=== PATIENT | female | born 1990 | race Caucasian/White ===

== ENCOUNTER 2019-04-06 16:08 | Inpatient (IN) ==
[2019-04-06] MEDS ORDERED: ONDANSETRON 4 MG TAB.RAPDIS PO PRN (16:13)
[2019-04-06] MEDS ORDERED: RINGER'S SOLUTION,LACTATED 1,000 ML IV ONE (16:13)
[2019-04-06] MEDS ORDERED: BUTORPHANOL TARTRATE 2 MG/ML VIAL IV PRN (16:13)
[2019-04-06] MEDS ORDERED: OXYTOCIN/DEXTROSE 5%-WATER 30 UNITS/500 ML BAG IV ONE (16:13)
[2019-04-06 16:48] LABS: Hematocrit 35.4 % (37.0-47.0); Hemoglobin 11.9 gm/dL (12.5-16.0); Mean Cell Volume 94.1 fl (78-100); Mean Corpuscular Hemoglobin 31.6 pg (27-31); Mean Corpuscular Hgb Conc 33.6 g/dl (32-36); Mean Platelet Volume 11.3 fl (8-12.5); Neutrophil # 14.9 K/mm3 (1.3-6.0); Neutrophil % 82.2 % (42-75.0); Platelet Count 251 K/mm3 (150-450); Red Blood Count 3.76 M/mm3 (4.2-5.4); Red Cell Distribution Width 13.1 % (11.5-14.0); White Blood Count 18.1 K/mm3 (4.0-10.5)
[2019-04-06 17:01] LABS: Anion Gap 14.7 mmol/L (6.8-13.8); BUN/Creatinine Ratio 21.4 (9.0-21.6); Bilirubin, Total 0.4 mg/dL (0.0-1.1); Ca. Corrected For Albumin 10.3 mg/dL (8.4-10.2); Calcium * 9.8 mg/dL (7.9-10.9); Carbon Dioxide 23.8 mmol/L (24-32.6); Potassium 4.5 mmol/L (3.4-4.6); Total Protein 7.4 gm/dL (6.2-8.2)
[2019-04-06 17:07] LABS: Cocaine Ur Negative (NEGATIVE); Urine Barbiturate Negative (NEGATIVE); Urine Benzodiazepines Negative (NEGATIVE); Urine Opiates Negative (NEGATIVE); Urine PCP Negative (NEGATIVE); Urine THC Negative (NEGATIVE)
[2019-04-06] MEDS: MISOPROSTOL 100 MCG TABLET VG PRN ×2 (17:10→21:23)
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
[2019-04-07] MEDS ORDERED: BUPIVACAINE HCL/0.9 % NACL/PF 250 ML EP PRN (01:32)
[2019-04-07] MEDS ORDERED: ONDANSETRON HCL/PF 2 MG/ML VIAL IV PRN (01:32)
[2019-04-07] MEDS ORDERED: NALOXONE HCL 1 MG/1 ML SYRG IV PRN (01:32)
[2019-04-07] MEDS ORDERED: fentaNYL CITRATE/PF 50 MCG/ML AMPUL IT SCH (01:45)
[2019-04-07] MEDS ORDERED: LIDOCAINE HCL/EPINEPHRINE 20 ML VIAL IJ ONE (01:50)
--- NOTE | 2019-04-07 02:33 | ANES ---
Anesthesia Pre Procedure Eval Vitals/Labs: Last Vital Signs Temp 36.8 C 04/07/19 01:33 Pulse 97 04/07/19 01:33 Resp 20 04/07/19 01:33 BP 121/72 04/07/19 01:33 Pulse Ox 98 04/07/19 01:33 HOME MEDICATIONS docosahexanoic acid 200 mg capsule mg PO cap 02/16/19 [Last Taken Unknown] ferrous sulfate 325 mg (65 mg iron) tablet 325 mg PO DAILY #30 tab 02/17/19 [Last Taken 04/06/19 05:30] Acetaminophen [Tylenol] PO PRN 04/06/19 [Last Taken 04/06/19 10:30] Vits96/Iron Fum/Folic [ S] 1 tab PO DAILY 04/06/19 [Last Taken 04/06/19 05:30] Allergies/Adverse Reactions: Allergies Allergy/AdvReac Type Severity Reaction Status Date / Time No Known Allergies Allergy Verified 04/06/19 16:35 - Planned Procedure Planned Procedure: INDUCTION OF LABOR Medication List Reviewed:: Yes Allergies Verified: Yes Medical History (Updated 04/06/19 @ 17:24 by Jung Castellanos DO) Alcohol abuse complicating in first trimester (Inactive) may have been up to late 2nd trimester since patient unsure of LMP. Tobacco abuse (Chronic) Abnormal Pap smear of cervix Onset Date: ~2009 stated "They scraped my cervix" Chlamydial infection Onset Date: Unknown Tx'd Surgical History (Updated 04/06/19 @ 17:24 by Jung Castellanos DO) No pertinent past surgical history Family History (Updated 02/16/19 @ 13:22 by Cassandra Burrows RN) Mother Breast cancer, Onset Age: 50 Father Pneumonia, Onset Age: 47 Brother Heart aneurysm - Family Anesthesia History Family History:: no untoward family reactions to anesthesia - Airway/Neck/Teeth Within Normal Limits:: Yes Teeth Condition: intact Mallampatti Score: 2 Thyromental (T-M) distance: > 6 cm Mandibulo Hyoid distance: > 3 cm - Respiratory Smoking Status: Current every day smoker - Cardiovascular Tolerate Activity: Good - Anesthesia Assessment and Plan ASA Class: PS, II, E Anesthesia Type Plan: Epidural Planned difficult intubation/equipment available: No
--- NOTE | 2019-04-07 02:34 | ANES ---
Post Anesthesia Discharge - Transfer of Care Transfer of Care handoff given to nurse: Yes - Anesthesia Post Op Note Anesthesia Post Op Note: Care transferred to OB RN
--- NOTE | 2019-04-07 02:34 | ANES ---
Post Anesthesia Assessment - Vital Signs Vitals: Last Vital Signs Temp 36.8 C 04/07/19 01:33 Pulse 97 04/07/19 01:33 Resp 20 04/07/19 01:33 BP 121/72 04/07/19 01:33 Pulse Ox 98 04/07/19 01:33 Airway Patency: Normal - Mental Status Level Of Consciousness: Awake - Pain Level Pain Score: 2 - N/V Assessment Nausea/Vomiting Presence: None Dehydration:: No
--- NOTE | 2019-04-07 02:37 | ANES ---
Anesthesia Procedure Note Procedure Note: ANESTHESIA PROCEDURE NOTE Date of Procedure: 04/07/2019 Time of procedure: 12 14. Performed by: Krishna Garibay CRNA Junior Art Director: None. Preprocedure diagnosis: Active labor. Post procedure diagnosis: Same. Procedure: Insertion of labor epidural. Indications: The patient is a 29-year-old prima para female in active labor requesting labor epidural for pain management. Findings: See below. Details of the procedure: The patient was placed in a sitting position. Back was prepped with DuraPrep. Patient was then draped in a sterile fashion. Lidocaine 1% was infiltrated to the skin and subcutaneous tissues at the level of the L3 4 interspace. The epidural space was identified using a 18-gauge Tuohy needle with [id number] technique. 20 mcg fentanyl was given intrathecally using a 27 ga. spinal needle. Epidural catheter was inserted without difficulty. Negative test dose was elicited using 3 mL of 2% preservative-free lidocaine plus epinephrine 1 200,000. The epidural catheter was then taped and secured in place. EBL: Minimal. Fluids: N/A. Specimen: N/A. Post procedure condition: The patient tolerated the procedure well. No complications were noted. Thank you for this consultation. Jaquez CRNA
[2019-04-07] MEDS: RINGER'S SOLUTION,LACTATED 1,000 ML IV PRN ×2 (02:42→10:06)
[2019-04-07] MEDS ORDERED: ALPRAZolam 1 MG TABLET PO ONE (08:51)
--- NOTE | 2019-04-07 13:07 | PN ---
Progess Note - Interim Date: 04/07/19 Time: 13:03 Narrative: 04/07/19 13:03 Patient comfortable with epidural Vital signs stable. Pitocin was at 3 mu/min, but stopped due to tachsystole. Contractions q 2-3 min Cervix: 4/70/-2 Impression: Intrauterine at 39 weeks. Induction of labor for demise Plan: Baseline stillbirth labs obtained. Continue induction of labor.
[2019-04-07] MEDS ORDERED: GLYCERIN/WITCH HAZEL LEAF 40 APPL BOX TP PRN (19:05)
[2019-04-07] MEDS ORDERED: ACETAMINOPHEN 325 MG TABLET PO PRN (19:05)
[2019-04-07] MEDS ORDERED: BENZOCAINE/MENTHOL 81 SPRAY CAN TP PRN (19:05)
[2019-04-07] MEDS ORDERED: OXYTOCIN/DEXTROSE 5%-WATER 30 UNITS/500 ML BAG IV ONE (19:05)
[2019-04-07] MEDS ORDERED: BISACODYL 10 MG SUPP.RECT RC PRN (19:05)
[2019-04-07] MEDS ORDERED: SENNOSIDES 8.6 MG TABLET PO PRN (19:05)
[2019-04-07] MEDS ORDERED: RHO(D) IMMUNE GLOBULIN 1,500 UNIT SYRINGE IM ONE ×2 (19:05→20:41)
[2019-04-07] MEDS ORDERED: IBUPROFEN 800 MG TABLET PO PRN (19:05)
[2019-04-07] MEDS ORDERED: HYDROCORTISONE 30 APPL TUBE TP PRN (19:05)
--- NOTE | 2019-04-07 19:50 | OR ---
Operative Report - Dictated Report Narrative: Spontaneous vaginal delivery of nonviable male at 1827 on 04[birth year]1997 weighing 2646 g in JESUS position with compound right arm presentation. head and face had extensive bruising. The skin of the entire body was macerated. The scrotum was swollen and ecchymotic. There was no gross morphological abnormalities of face limbs or digits. Placenta delivered complete, intact, with three vessel cord. About one third of the placenta had clot attached to the maternal side. Thick formed meconium was noted upon delivery of the . No amniotic fluid was noted at attempted ruptured membranes at 1155 today or with delivery of infant. The umbilical cord was blackened and extensively bruised the entire length, especially more so on the side connected to fetus. The cord appeared to be average length and was not wrapped around any body parts, had no knots, or torsion. Estimated blood loss: less than 50 ml Anesthesia: epidural Lacerations: None
[2019-04-07] MEDS ORDERED: ALPRAZolam 0.25 MG TABLET PO PRN (20:10)
[2019-04-07] MEDS: oxyCODONE HCL/ACETAMINOPHEN 1 TAB TABLET PO PRN (22:02)
[2019-04-07] MEDS: DOCUSATE SODIUM 100 MG CAPSULE PO SCH (22:03)
[2019-04-07] MEDS: ESCITALOPRAM OXALATE 10 MG TAB PO SCH (22:04)
[2019-04-08] MEDS: oxyCODONE HCL/ACETAMINOPHEN 1 TAB TABLET PO PRN (03:27)
[2019-04-08 08:09] VITALS: BP 107/69
[2019-04-08] MEDS: ESCITALOPRAM OXALATE 10 MG TAB PO SCH (09:04)
[2019-04-08] MEDS: DOCUSATE SODIUM 100 MG CAPSULE PO SCH (09:04)
--- NOTE | 2019-04-08 09:26 | PN ---
Subjective - Date and Time Seen Date: 04/08/19 Time: 09:23 Objective - Vitals Vitals: Last Vital Signs Temp 36.8 C 04/08/19 08:01 Pulse 86 04/08/19 08:01 Resp 16 04/08/19 08:01 BP 107/69 04/08/19 08:01 Pulse Ox 97 04/08/19 03:52 Patient complaining of mild normal postdelivery cramping Lochia wnl Abdomen - soft, nontender Uterus - firm, at umbilicus - 1 No calf tenderness Impression: day #1 - s/p spontaneous vaginal delivery of a 39 week still . The infant sent for autopsy at [facility]. Plan: Encouraged patient to seek grief counseling. Resources provided. Follow- up in the office in 2-3 weeks. Prescriptions given for Xanax and Lexapro. Cauti Physician Documentation - Urinary Catheter Management Urethral ([place]) Date of Insertion: 04/07/19 Time of Insertion: 01:25 Assessment/Plan - Problems/Diagnosis (1) demise, greater than 22 weeks, antepartum, single gestation Problem: Acute (2) Late care Problem: Acute (3) Tobacco abuse Problem: Chronic (4) Alcohol abuse complicating in first trimester Problem: Inactive
[2019-04-09] MEDS ORDERED: PRENATAL VITS96/IRON FUM/FOLIC 1 TAB TABLET PO SCH (09:00)
[2019-04-09] MEDS ORDERED: FERROUS SULFATE 325 MG TABLET PO SCH (09:00)
[2019-04-12 06:09] LABS: Cardiolipin Antibody IgA <11 APL; Cardiolipin Antibody IgG <14 GPL; Cardiolipin Antibody IgM <12 MPL
[2019-04-12 16:54] LABS: Parvo Virus B-19 IgG Antibody 6.07; Parvo Virus B-19 IgM Antibody <0.9
== END 2019-04-08 11:00 | disposition home or self-care (01) | DRG 806 ==
LOC: OB 16:08 → MS 04-07 22:34
PROVIDERS: ADMIT Obstetrics & Gynecology; ATTEND Obstetrics & Gynecology
CPT/HCPCS: 36415; 59025; 80053; 80307; 84443; 85025; 85460; 85613; 85730; 86147; 86592; 86747; 87070; 87075; 87077; 87186; 88262; J2790

== ENCOUNTER 2020-06-28 14:12 | Inpatient (IN) ==
[2020-06-28] MEDS ORDERED: RINGER'S SOLUTION,LACTATED 1,000 ML IV ONE (14:15)
[2020-06-28] MEDS ORDERED: RINGER'S SOLUTION,LACTATED 1,000 ML IV PRN (14:15)
[2020-06-28] MEDS ORDERED: OXYTOCIN/0.9 % SODIUM CHLORIDE 30 UNITS/500 ML BAG IV ONE ×2 (14:15→17:53)
[2020-06-28] MEDS ORDERED: ONDANSETRON 4 MG TAB.RAPDIS PO PRN (14:15)
[2020-06-28 14:57] LABS: Cocaine Ur Negative (NEGATIVE); Urine Barbiturate Negative (NEGATIVE); Urine Benzodiazepines Negative (NEGATIVE); Urine Opiates Negative (NEGATIVE); Urine PCP Negative (NEGATIVE); Urine THC Negative (NEGATIVE)
[2020-06-28] MEDS: MISOPROSTOL 100 MCG TABLET VG PRN ×2 (15:47→19:58)
--- NOTE | 2020-06-28 17:29 | HP ---
Chief Complaint - Chief Complaint Date of Service: 06/28/20 Time of Service: 17:22 Chief Complaint: Induction of labor for oligohydramnios and history of 39 wk demise History of Present Illness: 30 yo at 37w4d presents to L&D for induction of labor due to oligohydramnios. This complicated by 1st trimester use of THC, smoker, depression, history of 39wk demise. Rh negative Rubella immune GBS negative Medical History (Last Reviewed 06/28/20 @ 17:43 by Jung Castellanos DO) Tobacco abuse (Chronic) Stillbirth with normal delivery Onset Date: 04/07/19 ASCUS with positive high risk HPV (Resolved) Abnormal Pap smear of cervix Onset Date: ~2009 stated "They scraped my cervix" Alcohol abuse complicating in first trimester (Resolved) may have been up to late 2nd trimester since patient unsure of LMP. Chlamydial infection Onset Date: Unknown Tx'd Depression (Resolved) Surgical History: Surgical History (Last Reviewed 06/28/20 @ 17:43 by Jung Castellanos DO) No pertinent past surgical history Family History: Family History (Last Reviewed 06/28/20 @ 17:43 by Jung Castellanos DO) Mother Breast cancer, Onset Age: 50 Father Pneumonia, Onset Age: 47 Brother Heart aneurysm Social History: (Last Reviewed 06/28/20 @ 17:43 by Jung Castellanos DO) Social History: Marital status: household members: none current occupational status: employed current occupation: [employer] plant current occupational exposures/hazards: Yes Highest education level completed: high school graduate Service: No Tobacco: Smoking Status: Current every day smoker tobacco type: cigarettes Smoking cigarettes per day: 10.0 Smoking packs per day: 0.5 Alcohol: alcohol intake: current alcohol intake frequency: a few times a week details: None with Substance Use: substance use type: former substance user Dietary Habits: caffeine: Yes caffeine comment: 3/day Type: coffee, carbonated beverages Exercise: Physical activity type: none Review Of Systems (GEN) - Review of Systems Generalized/Overall Review: Present: No Symptoms Reported EENTM: Present: No Symptoms Reported Respiratory: Present: No Symptoms Reported Cardiac: Present: No Symptoms Reported Abdominal: Present: No Symptoms Reported Genitourinary: Present: No Symptoms Reported Musculoskeletal: Present: No Symptoms Reported Neurological: Present: No Symptoms Reported Skin: Present: No Symptoms Reported Endocrine: Present: No Symptoms Reported Allergies/Adverse Reactions: Allergies Allergy/AdvReac Type Severity Reaction Status Date / Time No Known Allergies Allergy Verified 06/28/20 14:17 Home Medications: HOME MEDICATIONS Ferrous Sulfate [Iron] 65 mg PO DAILY 06/28/20 [Last Taken Unknown] Vits96/Iron Fum/Folic [ S] 1 tab PO DAILY 06/28/20 [Last Taken Unknown] Exam - Exam Vital Signs: Vital Signs - Last Taken Temp 36.8 C 06/28/20 14:43 Pulse 98 06/28/20 14:43 Resp 20 06/28/20 14:43 BP 128/68 06/28/20 14:43 Pulse Ox 97 06/28/20 14:43 Constitutional: Present: Alert, Oriented x3, Cooperative ENT Exam: Present: hearing grossly normal Neck: Absent: thyromegaly Breasts: Present: Exam deferred Respiratory: Present: lungs clear, no respiratory distress Cardiovascular/Chest: Present: regular rate, rhythm, no edema Abdomen: Present: soft, nontender, no rebound tenderness, other - Gravid /Rectal: Present: Other - Cervix - 1/th/ballotable Extremity: Present: no calf tenderness Skin Exam: Present: normal color, warm/dry, no cyanosis Lymphatic: Present: no adenopathy Neurologic: Present: alert, normal mood/affect Appearance: Present: appropriate appearance, appropriate insight Eye contact: Present: cooperative, good eye contact Thoughts: Present: normal thought pattern, normal mood /affect Diagnostic Studies: Laboratory Results Urine Opiates Screen Negative (NEGATIVE) 06/28/20 14:35 Barbiturate Screen Negative (NEGATIVE) 06/28/20 14:35 Ur Phencyclidine Scrn Negative (NEGATIVE) 06/28/20 14:35 Urine Amphetamine Negative (NEGATIVE) 06/28/20 14:35 U Benzodiazepines Scrn Negative (NEGATIVE) 06/28/20 14:35 Urine Cocaine Screen Negative (NEGATIVE) 06/28/20 14:35 Urine Marijuana (THC) Negative (NEGATIVE) 06/28/20 14:35 Assessment/Plan - Assessment/Plan (1) Oligohydramnios in third trimester Assessment: Admit for cytotec induction of labor. Epidural PRN. Problem: Acute Qualifiers: Fetus number: single or unspecified fetus Qualified Code(s): O41.03X0 - Oligohydramnios, third trimester, not applicable or unspecified (2) Prior with demise Problem: Chronic (3) Tobacco abuse Problem: Chronic
[2020-06-29] MEDS: MISOPROSTOL 100 MCG TABLET VG PRN (02:28)
[2020-06-29] MEDS ORDERED: NALOXONE HCL 1 MG/1 ML SYRG IV PRN (03:05)
[2020-06-29] MEDS ORDERED: ONDANSETRON HCL/PF 2 MG/ML VIAL IV PRN ×2 (03:05→09:20)
[2020-06-29] MEDS ORDERED: BUPIVACAINE HCL/0.9 % NACL/PF 250 ML EP PRN (03:05)
[2020-06-29] MEDS ORDERED: fentaNYL CITRATE/PF 50 MCG/ML AMPUL IT SCH (03:15)
--- NOTE | 2020-06-29 03:53 | ANES ---
Anesthesia Pre Procedure Eval Vitals/Labs: Last Vital Signs Temp 36.8 C 06/28/20 14:43 Pulse 98 06/28/20 14:43 Resp 20 06/28/20 14:43 BP 128/68 06/28/20 14:43 Pulse Ox 97 06/28/20 14:43 HOME MEDICATIONS Ferrous Sulfate [Iron] 65 mg PO DAILY 06/28/20 [Last Taken Unknown] Vits96/Iron Fum/Folic [ S] 1 tab PO DAILY 06/28/20 [Last Taken Unknown] Allergies/Adverse Reactions: Allergies Allergy/AdvReac Type Severity Reaction Status Date / Time No Known Allergies Allergy Verified 06/28/20 14:17 - Planned Procedure Planned Procedure: medical induction of labore 39 wks stillbirth Medication List Reviewed:: Yes Allergies Verified: Yes Medical History (Last Reviewed 06/29/20 @ 03:51 by Deny Ramires CRNA) Tobacco abuse (Chronic) Stillbirth with normal delivery Onset Date: 04/07/19 ASCUS with positive high risk HPV (Resolved) Abnormal Pap smear of cervix Onset Date: ~2009 stated "They scraped my cervix" Alcohol abuse complicating in first trimester (Resolved) may have been up to late 2nd trimester since patient unsure of LMP. Chlamydial infection Onset Date: Unknown Tx'd Depression (Resolved) Surgical History (Last Reviewed 06/29/20 @ 03:51 by Deny Ramires CRNA) No pertinent past surgical history Family History (Last Reviewed 06/29/20 @ 03:51 by Deny Ramires CRNA) Mother Breast cancer, Onset Age: 50 Father Pneumonia, Onset Age: 47 Brother Heart aneurysm - Family Anesthesia History Family History:: no untoward family reactions to anesthesia, no familial bleeding tendencies, no family history of clotting disorders, no family history of premature - Airway/Neck/Teeth Within Normal Limits:: Yes Teeth Condition: intact Neck Exam: full range of motion Mallampatti Score: 2 Thyromental (T-M) distance: > 6 cm Mandibulo Hyoid distance: > 3 cm - Respiratory Respiratory Physical: lungs clear Smoking Status: Current every day smoker Sleep Apnea currently treated: No Sleep Apnea by current assessment: No - Cardiovascular Tolerate Activity: Fair Heart Sounds: S1 & S2, Regular - Gastrointestinal NPO since: 0 - Anesthesia Assessment and Plan ASA Class: PS, II Anesthesia Type Plan: Epidural - CSE for labor analgesia
--- NOTE | 2020-06-29 04:12 | ANES ---
Post Anesthesia Discharge - Transfer of Care Transfer of Care handoff given to nurse: Yes - Discharge from PACU Discharge from PACU when meets criteria: Yes - Coomfortable post CSE
--- NOTE | 2020-06-29 04:14 | ANES ---
Anesthesia Procedure Note Procedure Note: ANESTHESIA PROCEDURE NOTE Date of Procedure: 06/29/2020 Time of procedure: 0350 aM. Performed by: GABRIEL Flynn CRNA, MSN Dental Assistant Medical Assistant: Terra Glynn RN. Preprocedure diagnosis: Active labor, labor pain. Post procedure diagnosis: Same. Procedure:Epidural for labor analgesia L4-5. Indications: Labor pain. Findings: See below. Details of the procedure: The patient was placed on the side of the bed in sitting positionand prepped with DuraPrep then draped in a sterile fashion. Lidocaine 1% was infiltrated to the skin and subcutaneous tissues at the level of the L4-5 interspace. An 18-gauge Touhy needle was used to approach the epidural space with loss of resistance technique. Once loss of resistance was achieved a 27-gauge spinal needle was passed through the epidural needle and CSF was contacted. After CSF returned, 20 mcg of fentanyl was injected in the spinal needle was removed the epidural catheter was then threaded approximately 4 cm in the epidural needle was removed. The catheter was taped in place and after careful aspiration 3 mL of 1.5% lidocaine with 1-200,000 epinephrine was injected without change in maternal heart rate or sensorium. . EBL: Minimal. Fluids: N/A. Specimen: N/A. Post procedure condition: The patient tolerated the procedure well with good relief. No complications were noted. Thank you for this consultation. Deny Ramires CRNA, GABRIEL, MSN
--- NOTE | 2020-06-29 04:19 | ANES ---
Post Anesthesia Assessment - Vital Signs Vitals: Last Vital Signs Temp 36.8 C 06/28/20 14:43 Pulse 98 06/28/20 14:43 Resp 20 06/28/20 14:43 BP 128/68 06/28/20 14:43 Pulse Ox 97 06/28/20 14:43 Airway Patency: Normal - Mental Status Level Of Consciousness: Awake, Alert, Appropriate - Pain Level Pain Score: 0 - N/V Assessment Nausea/Vomiting Presence: None Dehydration:: No
--- NOTE | 2020-06-29 05:11 | PN ---
Progess Note - Interim Date: 06/29/20 Time: 05:06 Narrative: 06/29/20 05:06 Patient comfortable with epidural. Feeling increased pressure with contractions Vital signs stable. Status post Cytotec x 3 doses (last dose at around 0230) FHT: 150 baseline, was reassuring until about 1/2-hour after the epidural when she began having repetitive late decelerations down to the 90s which have now resolved. Moderate variability. Contractions q 1 min Cervix: 8/90/-1, AROM-port wine colored Impression: Intrauterine at 37-5/7 weeks induction of labor for oligohydramnios, smoker, history of 39-week demise, suspect partial abruption Plan: Anticipate normal spontaneous vaginal delivery soon
[2020-06-29 05:26] LABS: Hemoglobin 9.8 gm/dL (12.5-16.0); Mean Cell Volume 91.8 fl (78-100); Mean Corpuscular Hemoglobin 32.1 pg (27-31); Neutrophil # 14.3 K/mm3 (1.3-6.0); Neutrophil % 78.5 % (42-75.0); Platelet Count 178 K/mm3 (150-450); Red Blood Count 3.05 M/mm3 (4.2-5.4); Red Cell Distribution Width 13.2 % (11.5-14.0); White Blood Count 18.2 K/mm3 (4.0-10.5)
[2020-06-29] MEDS ORDERED: AZITHROMYCIN 500 MG in DEXTROSE 5 % IN WATER 250 ML IV PRN ×4 (06:00→09:20)
[2020-06-29] MEDS ORDERED: ceFAZolin SODIUM 1 GM VIAL IV PRN (06:00)
[2020-06-29] MEDS ORDERED: LIDOCAINE HCL 50 ML VIAL ONE (06:37)
[2020-06-29] MEDS ORDERED: SUCCINYLCHOLINE CHLORIDE 20 MG/ML VIAL ONE (06:37)
[2020-06-29] MEDS ORDERED: PROPOFOL VIAL IV ONE (06:37)
[2020-06-29] MEDS ORDERED: LIDOCAINE HCL/EPINEPHRINE 20 ML VIAL ONE (06:38)
[2020-06-29] MEDS ORDERED: TERBUTALINE SULFATE 1 MG/ML VIAL SC ONE (07:30)
[2020-06-29] MEDS ORDERED: TERBUTALINE SULFATE 1 MG/ML VIAL ONE (07:30)
[2020-06-29] MEDS ORDERED: RINGER'S SOLUTION,LACTATED 1,000 ML IV PRN (07:40)
[2020-06-29] MEDS ORDERED: Oxytocin/Ringers Lactate 20 UNITS/1,000 ML BAG IV ONE (07:40)
--- NOTE | 2020-06-29 08:55 | ANES ---
Post Anesthesia Discharge - Transfer of Care Transfer of Care handoff given to nurse: Yes - Discharge from PACU Discharge from PACU when meets criteria: Yes - Comfortable post Csection
--- NOTE | 2020-06-29 09:04 | PN ---
Progess Note - Interim Date: 06/29/20 Time: 07:25 Narrative: 06/29/20 08:55 tracing began having frequent episodes of late decelerations since around 0445 at which time she was 5cm. She rapidly progressed to complete and began pushing. During this time she and her significant other were counseled on the possible need to perform operative vaginal delivery or section. The risks, benefits, and alternatives were discussed at that time. Patient became complete about 6:30 AM. She pushed well but fetus did not tolerate second stage of labor well having recurrent late decelerations. We managed to improve the tracing by having the patient rest through every 2- 3 contractions. After approximately 50 minutes of pushing and the fetus at -1 station, decision was made to allow patient to labor down giving both mother and baby a rest. During this time, recurrent late decelerations persisted, became more severe, and did not resolve despite multiple position changes. For this reason, patient was counseled again about section and we proceeded with an emergent primary section.
--- NOTE | 2020-06-29 09:06 | ANES ---
Post Anesthesia Assessment - Vital Signs Vitals: Last Vital Signs Temp 36.3 C 06/29/20 09:00 Pulse 94 06/29/20 09:00 Resp 16 06/29/20 09:00 BP 111/45 06/29/20 09:00 Pulse Ox 100 06/29/20 09:00 Airway Patency: Normal - Mental Status Level Of Consciousness: Awake, Alert, Appropriate - Pain Level Pain Score: 0 - N/V Assessment Nausea/Vomiting Presence: None Dehydration:: No
--- NOTE | 2020-06-29 09:16 | OR ---
Operative Report - Dictated Report Narrative: Indication: 30-year-old 3 para 1-0-1-0 at 37-5/7 weeks admitted for induction of labor due to oligohydramnios progressed to complete dilation at -1 station but continued to have persistent and worsening late decelerations. Status: Emergent Pre Operative Diagnosis: 37 5/7-weeks intrauterine . Nonreassuring tracing - recurrent late decelerations. Oligohydramnios. Post Operative Diagnosis: Same. Nuchal cord x1-tight. Procedure Preformed: Primary Low Transverse Section Surgeon: Fermin Castellanos DO Control Operator: OR Staff Anesthesia: Epidural Estimated Blood Loss: 400 mL Urine Output: 275 mL of concentrated urine Fluids Given: 700 mL of crystalloid Drains: Dotson to gravity Surgical Complications: None Specimens: Placenta to pathology Findings: Male born at 0752 on 06/29/2021 with Apgars 9 and 9, weighing 33 62 g in cephalic presentation with tight nuchal cord x1. Normal uterus, tubes, ovaries. Cord blood gas: Collected approximately 20min after delivery. Aterial pH 6.99, pCO2 94.3, BE -8.6 Venous pH 7.17, pCO2 55.9, BE -8.6 Technique: The patient was taken to the operating room and placed in dorsal supine position with a left lateral tilt. After adequate epidural anesthesia, dotson catheter insertion,SCDs placed, and 2 g of Ancef given preoperatively and 500 mg of Zithromax intravenously started, the abdominal cavity was entered via a modified Cecilio-Devine incision. Two rolled laps were placed in the pericolic gutters on either side of the uterus. A transverse incision was made in the lower uterine segment and extended laterally and upwardly with digital traction. Clear fluid was noted upon amniotomy. The infant was delivered easily. Nuchal cord was reduced. The cord was clamped and cut after approximately 30 seconds and infant was handed off to awaiting home health care coordinator. The placenta was allowed to deliver spontaneously. The uterus was cleared of clot and debris. Uterine incision was closed with 0 Vicryl using a running stitch. A second imbricating layer was placed. A single [id number] suture was placed in the left lateral third of the incision to provide excellent hemostasis. Rolled laps were removed from the abdominal cavitiy. The peritoneum was closed with a running 3- 0 Monocryl. The same suture was used to approximate the rectus and pyramidalis muscles. The fascia was closed with a running 0 Vicryl. The subcutaneous layer was closed with a running 3-0 Monocryl. The same suture was used to approximate the subdermal layer. The skin was closed with a running 4-0 Monocryl and Dermabond. Sponge, lap, needle, and instrument count were correct x 2. Disposition: The patient was transferred to post anesthesia care unit in good condition
[2020-06-29] MEDS ORDERED: SENNOSIDES 8.6 MG TABLET PO PRN (09:20)
[2020-06-29] MEDS ORDERED: BISACODYL 10 MG SUPP.RECT RC PRN (09:20)
[2020-06-29] MEDS ORDERED: SIMETHICONE 80 MG TAB.CHEW PO PRN (09:20)
[2020-06-29] MEDS ORDERED: IBUPROFEN 800 MG TABLET PO PRN (09:20)
[2020-06-29] MEDS: IBUPROFEN 800 MG TABLET PO PRN ×3 (09:34→22:06)
[2020-06-29] MEDS: oxyCODONE HCL/ACETAMINOPHEN 1 TAB TABLET PO PRN ×5 (09:35→22:07)
[2020-06-29 12:53] LABS: Base Excess -11.3 mmol/L (-10--2); HCO3 22.7 mmol/L (21.0-28.0); PCO2 94.3 mmHg (40.8-57.6); PO2 Less than 36.7 mmHg (11.8-24.2)
[2020-06-29 12:54] LABS: Base Excess -9.2 mmol/L (-10.0--2.0); HCO3 19.9 mmol/L (22.0-29.0); PCO2 55.9 mmHg (32.6-43.8); PO2 Less than 36.7 mmHg (23.3-35.9); pH 7.17 (7.23-7.33)
[2020-06-29 12:58] LABS: O2 Saturation Less than 40.0 %
[2020-06-29 12:59] LABS: O2 Saturation Less than 40.0 %
[2020-06-29] MEDS ORDERED: RHO(D) IMMUNE GLOBULIN 1,500 UNIT SYRINGE IM ONE (15:03)
[2020-06-29] MEDS: ENOXAPARIN SODIUM 40 MG/0.4 ML SYRG SC SCH (17:29)
[2020-06-29] MEDS: FERROUS SULFATE 325 MG TABLET PO SCH (17:37)
[2020-06-29] MEDS: DOCUSATE SODIUM 100 MG CAPSULE PO SCH (22:07)
[2020-06-30] MEDS: oxyCODONE HCL/ACETAMINOPHEN 1 TAB TABLET PO PRN ×6 (01:27→20:44)
[2020-06-30] MEDS: IBUPROFEN 800 MG TABLET PO PRN ×3 (04:45→20:44)
[2020-06-30] MEDS ORDERED: PRENATAL VITS96/IRON FUM/FOLIC 1 TAB TABLET PO SCH (09:00)
[2020-06-30] MEDS: FERROUS SULFATE 325 MG TABLET PO SCH ×2 (09:14→17:20)
[2020-06-30] MEDS: DOCUSATE SODIUM 100 MG CAPSULE PO SCH ×2 (09:14→20:44)
--- NOTE | 2020-06-30 12:18 | PN ---
Subjective - Date and Time Seen Date: 06/30/20 Time: 12:17 Objective - Vitals Vitals: Last Vital Signs Temp 36.6 C 06/30/20 08:30 Pulse 88 06/30/20 08:30 Resp 20 06/30/20 08:30 BP 126/58 06/30/20 08:30 Pulse Ox 98 06/30/20 08:30 Patient denies complaints. Tolerating regular diet. Ambulating without difficulty. Pain well controlled. Lochia wnl. Abdomen - soft, appropriately tender Incision -clean, dry, intact uterus - firm, at umbilicus -1 No calf tenderness Impression: Post op day #1 s/p primary section for nonreassuring tracing. Smoker Plan: Continue routine post-operative/ care - Abnormal Lab Findings Abnormal Lab Findings: Abnormal Lab Results 06/29/20 06/29/20 Range/Units 08:15 08:15 HCO3 19.9 L (22.0-29.0) mmol/L ABG pH 7.00 L (7.23-7.33) VBG pH 7.17 L (7.23-7.33) Cord ABG pCO2 94.3 H (40.8-57.6) mmHg Cord ABG pO2 Less than 36.7 H (11.8-24.2) mmHg Cord ABG Base Excess -11.3 L (-10--2) mmol/L Cord VBG pCO2 55.9 H (32.6-43.8) mmHg Cord VBG pO2 Less than 36.7 H (23.3-35.9) mmHg Cauti Physician Documentation - Urinary Catheter Management Urethral ([facility]kins) Date of Insertion: 06/29/20 Time of Insertion: 05:00 Date of Removal: 06/29/20 Time of Removal: 20:03 Assessment/Plan - Problems/Diagnosis (1) Oligohydramnios in third trimester Problem: Acute Qualifiers: Fetus number: single or unspecified fetus Qualified Code(s): O41.03X0 - Oligohydramnios, third trimester, not applicable or unspecified (2) Prior with demise Problem: Chronic (3) Tobacco abuse Problem: Chronic
[2020-06-30] MEDS: ENOXAPARIN SODIUM 40 MG/0.4 ML SYRG SC SCH (17:21)
[2020-07-01] MEDS: oxyCODONE HCL/ACETAMINOPHEN 1 TAB TABLET PO PRN (01:18)
--- NOTE | 2020-07-01 05:26 | PN ---
Subjective - Date and Time Seen Date: 07/01/20 Time: 05:25 Objective - Vitals Vitals: Last Vital Signs Temp 36.8 C 06/30/20 19:12 Pulse 80 06/30/20 19:12 Resp 16 06/30/20 19:12 BP 119/59 06/30/20 19:12 Pulse Ox 98 06/30/20 19:12 [Patient denies complaints. Ambulating well. Tolerating regular diet. Pain well controlled.] Desires early discharge. Lochia wnl. Abdomen - soft, appropriately tender Incision - [clean, dry, intact] Uterus - firm, at umbilicus -[2] No calf tenderness Impression: Post op day #2 s/p primary section. Smoker Plan: Continue routine post-operative/ care. Routine discharge instructions. Encouraged to stop smoking. Cauti Physician Documentation - Urinary Catheter Management Urethral ([facility]kins) Date of Insertion: 06/29/20 Time of Insertion: 05:00 Date of Removal: 06/29/20 Time of Removal: 20:03 Assessment/Plan - Problems/Diagnosis (1) Oligohydramnios in third trimester Problem: Acute Qualifiers: Fetus number: single or unspecified fetus Qualified Code(s): O41.03X0 - Oligohydramnios, third trimester, not applicable or unspecified (2) Prior with demise Problem: Chronic (3) Tobacco abuse Problem: Chronic
[2020-07-01 06:51] VITALS: BP 126/69
== END 2020-07-01 07:30 | disposition home or self-care (01) | DRG 788 ==
LOC: OB 14:12
PROVIDERS: ADMIT Obstetrics & Gynecology; ATTEND Obstetrics & Gynecology
DX: O41.03X0 Oligohydramnios, third trimester, not applicable or unspecified; Z3A.38 38 weeks gestation of pregnancy; O77.8 Labor and delivery complicated by other evidence of fetal stress; F32.9 Major depressive disorder, single episode, unspecified; O99.334 Smoking (tobacco) complicating childbirth; Z37.0 Single live birth; O99.344 Other mental disorders complicating childbirth; F17.210 Nicotine dependence, cigarettes, uncomplicated; O36.8330 Maternal care for abnormalities of the fetal heart rate or rhythm, third trimester, not applicable or unspecified